=== PATIENT | male | born 1995 | race Caucasian/White ===

== ENCOUNTER 2016-07-02 21:11 | Emergency (ER) | payer SELFPAY ==
[2016-07-02 21:16] VITALS: BP 132/63; PULSE 99; RESP 18; TEMP 97.4
--- NOTE | 2016-07-02 21:49 | ED ---
General Adult HPI - General Chief complaint: Dental/Oral Stated complaint: Dental Pain Time Seen by Provider: 07/02/16 21:17 Source: patient, RN notes reviewed Mode of arrival: ambulatory Limitations: no limitations - History of Present Illness Initial comments: This is a 21-year-old male presents with left side dental pain 4 days. Patient states he has a fractured tooth and the pain is getting worse. Patient has not seen a dentist because he does not have one currently. Patient denies any fever/chills, nausea/vomiting/diarrhea. Patient states he's been taking Tylenol and Motrin with no pain relief. Patient denies any headache, dysphagia , sore throat or visual changes. Patient states is a smoker for the last 3 years a half pack a day. Patient denies any alcohol or drug use. Patient denies any recent shortness breath, chest pain, abdominal pain, back pain, numbness, tingling, hematuria or any other complaints. - Related Data Previous Rx's Medication Instructions Recorded HYDROcodone/APAP 5-325MG [[place] 1 tab PO Q6HR #7 tab 07/02/16 5-325] Penicillin V Potassium [Pen Vee K] 500 mg PO BID 7 Days 07/02/16 Allergies Allergy/AdvReac Type Severity Reaction Status Date / Time naproxen Allergy Unknown Verified 07/02/16 21:42 tramadol Allergy Unknown Verified 07/02/16 21:42 Review of Systems ROS Statement: Those systems with pertinent positive or pertinent negative responses have been documented in the HPI. ROS Other: All systems not noted in ROS Statement are negative. Past Medical History Past Medical History: No Reported History History of Any Multi-Drug Resistant Organisms: None Reported Past Surgical History: No Surgical Hx Reported Past Psychological History: Anxiety Smoking Status: Current every day smoker Past Alcohol Use History: None Reported Past Drug Use History: None Reported General Exam - General Exam Comments Initial Comments: General: The patient is awake and alert, in no distress, and does not appear acutely ill. Eye: Pupils are equal, round and reactive to light, extra-ocular movements are intact. No nystagmus. There is normal conjunctiva bilaterally. No signs of icterus. Ears: TMs pink and pearly with intact cone of light bilaterally. Normal external ear canals. Nose: Nasal turbinates pink and moist. Mouth and throat: There is a fractured tooth #14. There are multiple areas of tooth decay and multiple cavities. There is no surrounding erythema, swelling or purulent drainage. There is some tenderness to palpation over the left upper jaw but no external facial swelling. There are moist mucous membranes and no oral lesions. Neck: The neck is supple, there is no tenderness or JVD. Cardiovascular: There is a regular rate and rhythm. No murmur, rub or gallop is appreciated. Respiratory: Lungs are clear to auscultation, respirations are non-labored, breath sounds are equal. No wheezes, stridor, rales, or rhonchi. Musculoskeletal: Normal ROM, no tenderness. Strength 5/5. Sensation intact. Radial pulses equal bilaterally 2+. Neurological: A&O x 3. CN II-XII intact, There are no obvious motor or sensory deficits. Coordination appears grossly intact. Speech is normal. Skin: Skin is warm and dry and no rashes or lesions are noted. Psychiatric: Cooperative, appropriate mood & affect, normal judgment. Limitations: no limitations Course Vital Signs 07/02/16 21:13 Temperature 97.4 F L Pulse Rate 99 Respiratory 18 Rate Blood Pressure 132/63 O2 Sat by Pulse 100 Oximetry Medical Decision Making - Medical Decision Making This is a 21-year-old male who presents with left-sided dental pain 4 days. On physical exam There is a fractured tooth #14. There are multiple areas of tooth decay and multiple cavities. There is no surrounding erythema, swelling or purulent drainage. There is some tenderness to palpation over the left upper jaw but no external facial swelling. There are moist mucous membranes and no oral lesions. I discussed with patient that he is to follow up with a dentist as soon as possible. Discussed that he'll receive a prescription for an antibiotic and pain medication. Patient states he has taken [place] in the past and had no ALLERGIC reaction to this. I discussed [id number] Tylenol and Motrin as needed for pain as well. I discussed warm compresses to the area. Discussed return parameters.Discussed that patient should follow up with PCP in one to 2 days or return to the [facility] for any worsening symptoms or for any further concerns. Patient was receptive to this plan and patient will be discharged home. Disposition Clinical Impression: Pain, dental Disposition: HOME SELF-CARE Condition: Good Instructions: Toothache (ED) Additional Instructions: Please finish entire course of antibiotics. Please use pain medication as prescribed. Please follow-up with a dentist as soon as possible. [facility] dental plan: [id number] [place] [address], . [employer] [facility] [employer]: Have to pay $50 for x-rays and the rest is covered. [phone]. Please follow-up with family doctor in the next 2 days of symptoms have not improved. Please return to emergency room if the symptoms increase or worsen or for any other concerns. Prescriptions: HYDROcodone/APAP 5-325MG [[place] 5-325] 1 tab PO Q6HR #7 tab Penicillin V Potassium [Pen Vee K] 500 mg PO BID 7 Days Referrals: None,Stated [Primary Care Provider] - 1-2 days Time of Disposition: 21:55
== END 2016-07-02 22:00 | disposition home or self-care (01) ==
LOC: EC 21:11
DX: S02.5XXA Fracture of tooth (traumatic), initial encounter for closed fracture (principal); X58.XXXA Exposure to other specified factors, initial encounter; F17.200 Nicotine dependence, unspecified, uncomplicated; Z88.6 Allergy status to analgesic agent

== ENCOUNTER 2016-07-03 05:03 | Emergency (ER) | payer OTHER ==
[2016-07-03 05:15] VITALS: PULSE 84; RESP 18; TEMP 97
[2016-07-03] MEDS ORDERED: Acetaminophen-Codeine 300-30mg TAB PO STA (05:27)
--- NOTE | 2016-07-03 05:27 | ED ---
General Adult HPI - General Chief complaint: Dental/Oral Stated complaint: Neck Pain Time Seen by Provider: 07/03/16 05:11 Source: patient, RN notes reviewed, old records reviewed Mode of arrival: ambulatory Limitations: no limitations - History of Present Illness Initial comments: This is a 21-year-old male ER for evaluation. This patient is here for evaluation of tooth pain down K severe dental disease. Patient's history of renal disease, states he is in town from out of town visiting ami who is sick. Patient has no pain medication was seen in ER earlier today but pain and symptoms worsened. No fevers, able to swallow and open mouth without difficulty - Related Data Previous Rx's Medication Instructions Recorded HYDROcodone/APAP 5-325MG [[place] 1 tab PO Q6HR #7 tab 07/02/16 5-325] Penicillin V Potassium [Pen Vee K] 500 mg PO BID 7 Days 07/02/16 Acetaminophen with Codeine 1 tab PO Q4H PRN #20 tab 07/03/16 [Tylenol w/codeine #3] Allergies Allergy/AdvReac Type Severity Reaction Status Date / Time naproxen Allergy Unknown Verified 07/03/16 05:14 tramadol Allergy Unknown Verified 07/03/16 05:14 Review of Systems ROS Statement: Those systems with pertinent positive or pertinent negative responses have been documented in the HPI. ROS Other: All systems not noted in ROS Statement are negative. Past Medical History Past Medical History: No Reported History History of Any Multi-Drug Resistant Organisms: None Reported Past Surgical History: No Surgical Hx Reported Past Psychological History: Anxiety Smoking Status: Current every day smoker Past Alcohol Use History: None Reported Past Drug Use History: None Reported General Exam - General Exam Comments Initial Comments: No significant facial swelling noted no abscess noted Limitations: no limitations General appearance: alert, in no apparent distress Head exam: Present: atraumatic, normocephalic, normal inspection Eye exam: Present: normal appearance, PERRL, EOMI. Absent: scleral icterus, conjunctival injection, periorbital swelling ENT exam: Present: normal exam, mucous membranes moist Neck exam: Present: normal inspection. Absent: tenderness, meningismus, lymphadenopathy Respiratory exam: Present: normal lung sounds bilaterally. Absent: respiratory distress, wheezes, rales, rhonchi, stridor Cardiovascular Exam: Present: regular rate, normal rhythm, normal heart sounds. Absent: systolic murmur, diastolic murmur, rubs, gallop, clicks GI/Abdominal exam: Present: soft, normal bowel sounds. Absent: distended, tenderness, guarding, rebound, rigid Extremities exam: Present: normal inspection, full ROM, normal capillary refill. Absent: tenderness, pedal edema, joint swelling, calf tenderness Back exam: Present: normal inspection Neurological exam: Present: alert, oriented X3, CN II-XII intact Psychiatric exam: Present: normal affect, normal mood Skin exam: Present: warm, dry, intact, normal color. Absent: rash Course Vital Signs 07/03/16 05:08 Temperature 97 F L Pulse Rate 84 Respiratory 18 Rate Blood Pressure 150/84 O2 Sat by Pulse 97 Oximetry - Reevaluation(s) Reevaluation #1: 07/03/16 05:28 Patient consult regarding pain control and needs see dentist when infection clears Medical Decision Making - Medical Decision Making 21 male the ER for evaluation of dental pain, dental caries, dental abscess. Patient will continue treatment with antibiotics and discharged home Disposition Clinical Impression: Pain, dental, Dental caries, Dental abscess Disposition: HOME SELF-CARE Condition: Good Instructions: Dental Caries (ED), Toothache (ED), Dental Abscess (ED) Prescriptions: Acetaminophen with Codeine [Tylenol w/codeine #3] 1 tab PO Q4H PRN #20 tab PRN Reason: Pain Referrals: None,Stated [Primary Care Provider] - 1-2 days
[2016-07-03] MEDS ORDERED: PENICILLIN V POTASSIUM 250 MG TAB PO STA (05:29)
[2016-07-03] MEDS ORDERED: PENICILLIN VK 500MG STARTER 4 TAB BTL PO STA (05:29)
[2016-07-03 05:43] VITALS: BP 122/75
== END 2016-07-03 05:42 | disposition home or self-care (01) ==
LOC: EC 05:03
DX: K02.9 Dental caries, unspecified (principal); K04.7 Periapical abscess without sinus; Z88.8 Allergy status to other drugs, medicaments and biological substances; F17.200 Nicotine dependence, unspecified, uncomplicated
CPT/HCPCS: 99283

== ENCOUNTER 2016-07-03 06:00 | Inpatient (IN) | payer MEDICAID, OTHER ==
--- NOTE | 2016-07-03 07:10 | ED ---
General Adult HPI - General Source: patient, RN notes reviewed, old records reviewed Mode of arrival: ambulatory Limitations: no limitations <Didier Lawler - Last Filed: 07/03/16 07:09> <Jose Singh - Last Filed: 07/03/16 09:42> - General Chief complaint: Psychiatric Symptoms Stated complaint: Mental Health Time Seen by Provider: 07/03/16 07:09 - History of Present Illness Initial comments: This is a 21-year-old male ER for evaluation. Patient was a near with symptoms of suicidal thoughts. Patient states he feels feels like killing himself or Feeling like killing someone else. Patient states this anger and agitation continues to grow. (Didier Lawler) - Related Data Previous Rx's Medication Instructions Recorded HYDROcodone/APAP 5-325MG [[place] 1 tab PO Q6HR #7 tab 07/02/16 5-325] Penicillin V Potassium [Pen Vee K] 500 mg PO BID 7 Days 07/02/16 Allergies Allergy/AdvReac Type Severity Reaction Status Date / Time naproxen Allergy Unknown Verified 07/03/16 06:24 tramadol Allergy Unknown Verified 07/03/16 06:24 Review of Systems ROS Other: All systems not noted in ROS Statement are negative. <Didier Lawler - Last Filed: 07/03/16 07:09> ROS Other: All systems not noted in ROS Statement are negative. <Jose Singh - Last Filed: 07/03/16 09:42> ROS Statement: Those systems with pertinent positive or pertinent negative responses have been documented in the HPI. Past Medical History Past Medical History: No Reported History History of Any Multi-Drug Resistant Organisms: None Reported Past Surgical History: No Surgical Hx Reported Past Psychological History: Anxiety Smoking Status: Current every day smoker Past Alcohol Use History: None Reported Past Drug Use History: None Reported <Didier Lawler - Last Filed: 07/03/16 07:09> General Exam Limitations: no limitations General appearance: alert, in no apparent distress Head exam: Present: atraumatic, normocephalic, normal inspection Eye exam: Present: normal appearance, PERRL, EOMI. Absent: scleral icterus, conjunctival injection, periorbital swelling ENT exam: Present: normal exam, mucous membranes moist Neck exam: Present: normal inspection. Absent: tenderness, meningismus, lymphadenopathy Respiratory exam: Present: normal lung sounds bilaterally. Absent: respiratory distress, wheezes, rales, rhonchi, stridor Cardiovascular Exam: Present: regular rate, normal rhythm, normal heart sounds. Absent: systolic murmur, diastolic murmur, rubs, gallop, clicks GI/Abdominal exam: Present: soft, normal bowel sounds. Absent: distended, tenderness, guarding, rebound, rigid Extremities exam: Present: normal inspection, full ROM, normal capillary refill. Absent: tenderness, pedal edema, joint swelling, calf tenderness Back exam: Present: normal inspection Neurological exam: Present: alert, oriented X3, CN II-XII intact Psychiatric exam: Present: normal affect, normal mood Skin exam: Present: warm, dry, intact, normal color. Absent: rash <Didier Lawler - Last Filed: 07/03/16 07:09> Course <Didier Lawler - Last Filed: 07/03/16 07:09> <Jose Singh - Last Filed: 07/03/16 09:42> Vital Signs 07/03/16 07/03/16 06:18 07:45 Temperature 97.0 F L Pulse Rate 96 84 Respiratory 16 18 Rate Blood Pressure 124/81 92/49 O2 Sat by Pulse 100 100 Oximetry Based on a suicidal ideation as well as homicidal ideation a sort was done twice inpatient treatment and further eval in the department of psychiatry at 9: 14 AM today him a discussed with social services analyst from Department of psychiatry and arrangements are being made for his inpatient treatment (Jose Singh) - Reevaluation(s) Reevaluation #1: 07/03/16 07:10 Patient was seen by myself in the emergency room earlier today for dental pain and also again 12 hours prior to that, patient was told to begin pain medication. He did leave the emergency room and then return complaining of suicidal thoughts (Didier Lawler) Reevaluation #2: 07/03/16 07:10 Patient's medically clear for psychiatric evaluation (Didier Lawler) Disposition <Didier Lawler - Last Filed: 07/03/16 07:09> <Jose Singh - Last Filed: 07/03/16 09:42> Clinical Impression: Suicidal ideation, Homicidal ideation Disposition: ADMITTED IP TO THIS [facility] Condition: Good Referrals: None,Stated [Primary Care Provider] - 1-2 days
[2016-07-03] MEDS ORDERED: HALOPERIDOL LACTATE 5 MG/ML 1 ML VIAL IM PRN (09:10)
[2016-07-03] MEDS ORDERED: LORazepam 2 MG/ML SYRINGE IM STA (09:49)
[2016-07-03] MEDS ORDERED: MAGNESIUM HYDROXIDE 2,400 MG/10 ML CUP PO PRN (10:59)
[2016-07-03] MEDS ORDERED: ACETAMINOPHEN TAB 325 MG TAB PO PRN (10:59)
[2016-07-03] MEDS ORDERED: ZIPRASIDONE 20 MG VIAL IM PRN (10:59)
[2016-07-03] MEDS ORDERED: MAG HYDROX/AL HYDROX/SIMETH 30 ML CUP PO PRN (10:59)
[2016-07-03 20:15] VITALS: BMI 24.0
[2016-07-04 06:35] VITALS: BP 118/67; PULSE 75; RESP 16; TEMP 97.9
[2016-07-04 09:35] LABS: Basophils # (A) 0.1 k/uL (0-0.2); Basophils % (A) 1 %; CH 31.1; CHCM 34.1; Eosinophils # (A) 0.5 k/uL (0-0.7); Eosinophils % (A) 6 %; HCT 46.9 % (39.0-53.0); HDW 2.55; HGB 15.4 gm/dL (13.0-17.5); Luc # (Auto) 0.11; Luc % (Auto) 1; Lymphocytes # (A) 1.7 k/uL (1.0-4.8); Lymphocytes % (A) 20 %; MCHC 32.8 g/dL (31.0-37.0); MCV 91.7 fL (80.0-100.0); Mean Platelet Volume 7.1; Monocytes # (A) 0.4 k/uL (0-1.0); Monocytes % (A) 4 %; Neutrophils # (A) 5.9 k/uL (1.3-7.7); Neutrophils % (A) 68 %; RBC 5.12 m/uL (4.30-5.90); RDW 12.1 % (11.5-15.5); WBC 8.7 k/uL (4.0-11.0); WBC (Perox) 8.69
--- NOTE | 2016-07-04 09:55 | P.HP ---
Psychiatric H&P - . History & Physical: Allergies Allergy/AdvReac Type Severity Reaction Status Date / Time naproxen Allergy Unknown Verified 07/03/16 20:17 tramadol Allergy Unknown Verified 07/03/16 20:17 Vital Signs Temp 97.9 F 07/04/16 06:34 Pulse 75 07/04/16 06:34 Resp 16 07/04/16 06:34 BP 118/67 07/04/16 06:34 Pulse Ox 98 07/03/16 10:30 Intake & Output 07/03/16 07/04/16 07/04/16 18:59 06:59 18:59 Weight 71.781 kg 71.78 kg Laboratory Last Values Urine Opiates Screen Not Detected (NotDetected) 07/03/16 06:54 Ur Oxycodone Screen Not Detected (NotDetected) 07/03/16 06:54 Urine Methadone Screen Not Detected (NotDetected) 07/03/16 06:54 Ur Propoxyphene Screen Not Detected (NotDetected) 07/03/16 06:54 Ur Barbiturates Screen Not Detected (NotDetected) 07/03/16 06:54 U Tricyclic Antidepress Not Detected (NotDetected) 07/03/16 06:54 Ur Phencyclidine Scrn Not Detected (NotDetected) 07/03/16 06:54 Ur Amphetamines Screen Not Detected (NotDetected) 07/03/16 06:54 U Methamphetamines Scrn Not Detected (NotDetected) 07/03/16 06:54 U Benzodiazepines Scrn Detected (NotDetected) H 07/03/16 06:54 Urine Cocaine Screen Not Detected (NotDetected) 07/03/16 06:54 U Marijuana (THC) Screen Detected (NotDetected) H 07/03/16 06:54 07/04/16 09:25 Psychiatric admission notes. Identification data and reason for hospitalization. Patient is a 21-year-old male who was admitted to mental health unit following evaluation in the emergency department on a petition made by the social welfare research worker and clinical certificate by the physician. The petition states that patient had reported having suicidal thoughts and also seemed to have made threats to the social welfare research worker as well as other staff members in the ER. I attempted to see the patient on 07/03/2016, but he was under heavy sedation having had a injection of Haldol and Ativan in the emergency room, with the result he was not arousable. History of present illness. Information obtainable from the patient may not be fully reliable as far as his personal history, however he indicates that he had no past psychiatric problem nor having any depression or suicidal thoughts at the time of admission either. According to him he has been in the [facility] for the past 3 weeks living with his grandfather who is in an assisted living facility. For the past few days he had been having severe toothache and could not afford to go to a dentist and hence came to the emergency room on 3 occasions seeking pain medication. There is likelihood that he may be abusing or dependent on opiates though he denies this. According to him as there was no improvement he came back on the day of this admission and during the evaluation made a statement that the pain is so severe he wished he was . Patient emphasizes that it was not his statement that he was having suicidal thoughts or he wanted to harm himself. Patient upset that this was interpreted as a suicidal statement and during the discussion he also seemed to set that he has problem with anger and deep somebody could agitate him he could hurt them. Denies that he meant that he was having thoughts of hurting others. As noted patient was admitted on a petition and clinical certificate and today following my evaluation patient willing to be on a voluntary status. He is requesting to be discharged as he is not suicidal or has any psychiatric problem. Past psychiatric history. Patient denies having any psychiatric problem currently or in the past and on direct inquiry denies having had any behavioral issues while at school or subsequently. Substance abuse history. Patient denies having had any alcohol use or abuse. Admits that he smokes marijuana once in a while but no other street drugs. Medical history. Complains of toothache from a broken tooth. No other past medical history. Personal history. Patient is older of 2 siblings; has an 18-year-old sister who is in high school. Reports that his father when he was 4 years old of cancer. When he was 14 his mother left and he claims that he has no knowledge about her whereabouts. He and his sister was raised by stepmother who according to him is dying of cancer. Father states that he was an honor student and has graduated from high school. Wanted to go to college but financially he could not and assumes the responsibility of taking care of his sister. There may be some discrepancies in his personal history. To verify them through psychosocial history. Family history. Per patient no family history of any psychiatric problem. ALLERGIES Naprosyn and tramadol. Current medications. Patient was prescribed penicillin 500 mg for 7 days, and no cough 5/325 every 6 hours when necessary both prescribed down 07/02/2016. Mental status examination. Patient is a small built white gentleman who comes readily for evaluation, dressed in his own clothes and maintaining good eye contact. His attention and concentration could be aroused and sustained without difficulty. Patient initiated conversation indicating how anxious he is to get back to [place] where he is from as he claims his stepfather is in the hospital and may not make it. Patient appeared to be superficially cooperative however became irritated with the process of his admission claiming that he was not suicidal or homicidal and did not indicate either. Speech and thought process appeared to be normal. Denies any depression, however admits that he was unaware of anger problems. Other than being irritable no mood disturbance noticeable. Affect appropriate. No evidence of any delusions or hallucinations. Oriented to time place and person. Memory functions off remote and recent events may be intact though these are not verifiable at present. Immediate recall intact. General Information intact. May have adequate degree of insight though his judgment of utilizing ER consecutively may indicate questionable judgment. Intelligence. Above average Strengths. High school graduate, according to him honor student. Absence of past psychiatric or substance abuse history other than marijuana. Weakness. Unemployed. Questionable limitation of family support. Formulation. Patient is a 21-year-old white gentleman, with no prior history of psychiatric or substance abuse problem, came to the ER reporting toothache and wanting medication. During evaluation having made statement of questionable suicidality and homicidality and was referred for inpatient care on a petition and clinical certificate. Patient denies both and is requesting to be discharged. Admitting diagnoses. [place] I. Marijuana use. Rule out adjustment disorder. [place] II. Deferred [place] III. Toothache. [place] IV. Mild. [place] V. 60. Treatment plans. Patient will be on regular diet and will be on close observation for any behavioral issues. Medical evaluation and psychosocial history to be obtained. Patient does not want to be on any psychotropic medication as he denies having any psychiatric problems, and unless there is indication otherwise no medication prescribed. He may have Tylenol, Maalox and Mylanta on a when necessary basis. We will try to get as much information as possible and will consider discharge without treatment. Prognosis.
[2016-07-04 10:07] LABS: ALT 32 U/L (21-72); AST 26 U/L (17-59); Alkaline Phosphatase 89 U/L (38-126); Anion Gap 13 mmol/L; Blood Urea Nitrogen 16 mg/dL (9-20); Calcium 10.1 mg/dL (8.4-10.2); Carbon Dioxide 28 mmol/L (22-30); Chloride 105 mmol/L (98-107); Glucose 112 mg/dL (74-99); Non-African American GFR(MDRD) >60 (>60 ml/min/1.73 sqM); Potassium 4.2 mmol/L (3.5-5.1); Sodium 146 mmol/L (137-145); Total Bilirubin 1.6 mg/dL (0.2-1.3); Total Protein 7.3 g/dL (6.3-8.2)
--- NOTE | 2016-07-04 13:41 | P.DS ---
Providers Date of admission: 07/03/16 10:28 Attending physician: Elodia Pardo MD Psychiatric discharge summary. Identification data and reason for hospitalization. Patient is a 21-year-old white gentleman was admitted to mental health unit following evaluation in the emergency department on a petition made by social media marketing specialist and clinical certificate by physician. Apparently patient came to the hospital seeking pain medication on 3 days consecutively and while there seems to have expressed suicidal and homicidal thoughts. Following evaluation by me patient signed voluntary and he did not meet criteria for continued hospitalization as there was no evidence of him being depressed or having suicidal/homicidal thoughts. For details please refer to the dictated admission notes. Admitting diagnoses. [place] I. Marijuana abuse. Rule out adjustment disorder. [place] II. Deferred [place] III. Tooth ache. [place] IV. Mild. [place] V. 60. Course during hospitalization. Patient was on regular diet and on a when necessary basis was on Tylenol Maalox and Mylanta. As patient did not manifest depression or suicidal ideation discharge plans were made at his request as he indicated that he has obtained a job and need to return to work as soon as possible. The only problem this gentleman seems to have at present is his marijuana dependency and possibly becoming dependent on pain medication. Patient was agreeable to go for counseling and discharged with that recommendation. While on the unit he was continued on penicillin and [place] as prescribed in the ER. Mental status at the time of discharge. No change from the time of admission. Discharge diagnoses. No change from the admitting diagnoses. Post hospital plans. Patient to be on regular diet and may resume insulin and [place] as advised in the ER. He has an appointment at [facility] for impact on . Next Risk assessment. Based on my evaluation there does not appear to be a risk of him being dangerous to self or others. However it is not clear the extent of his substance abuse problem and this may be a future problem for this gentleman. Consults: 07/03/16 10:59 Consult Physician Routine Consulting Provider: Jeramy Sorto Consult Reason/Comments: H and P Do you want consulting provider notified?: Yes Primary care physician: Stated None Patient Condition at Discharge: Good Plan - Discharge Summary Discharge Medication List HYDROcodone/APAP 5-325MG [[place] 5-325] 1 tab PO Q6HR #7 tab 07/02/16 [Rx] Penicillin V Potassium [Pen Vee K] 500 mg PO BID 7 Days 07/02/16 [Rx] Follow up Appointment(s)/Referral(s): [facility] for [facility] [Outside] - 07/09/16 12:00 pm (07/09/16 at 1200 with intake ) None,Stated [Primary Care Provider] - 1-2 days Patient Instructions/Handouts: Depression (DC), Suicide Prevention for Adults ( DC) Activity/Diet/Wound Care/Special Instructions: activity and diet as tolerated. Avoid the use of street drugs and alcohol. Please go to scheduled outpatient appointment for aftercare. If symptoms return or become worse call the crisis line at and/or go to the nearest emergency room for an evaluation.
--- NOTE | 2016-07-05 15:48 | CONS ---
DATE OF CONSULTATION: 07/04/2016 DATE OF SERVICE: 07/04/2016 at 12:00 noon. CHIEF COMPLAINT: Depression. HISTORY OF PRESENT ILLNESS: This 21-year-old with no significant past medical history who presented to the emergency department with depression. Currently patient is denying chest pain, shortness of breath, nausea, vomiting, orthopnea, dizziness, lightheadedness, or blurry vision and would like to go home as soon as possible. ALLERGIES: 1. TRAMADOL gives him headache. 2. NAPROXEN gives him vomiting. PAST MEDICAL HISTORY: None. PAST SURGICAL HISTORY: Positive for right first digit surgery. HOME MEDICATIONS: Hydrocodone for his tooth fracture pain as needed. SOCIAL HISTORY: Positive for half pack per day cigarette smoking. Positive for occasional marijuana. FAMILY HISTORY: Significant for father with colon cancer and 17-years ago. Other family members are healthy. PHYSICAL EXAMINATION: VITAL SIGNS: Stable. GENERAL: Patient not in acute distress. HEENT: Atraumatic, normocephalic. NECK: Supple. No masses, no thyromegaly. LUNGS: Clear to auscultation bilaterally. HEART: S1, S2. ABDOMEN: Soft, no tenderness. Bowel sounds in all four quadrants. EXTREMITIES: No edema. PSYCH: Alert and oriented x3. ( ) effect. IMAGING AND LABS: Reviewed. ASSESSMENT AND PLAN: 1. Acute depression per your management. 2. Tooth fracture. Pain medicine with outpatient primary care physician. Patient follow up with them as an outpatient. No obvious infection at this point. No need for any antibiotics. 3. Discharge planning per primary team recommendations.
== END 2016-07-04 13:20 | disposition home or self-care (01) | DRG 882 ==
LOC: EC 06:00 → 3MHU 10:28
PROVIDERS: ADMIT Psychiatry & Neurology Psychiatry; ATTEND Psychiatry & Neurology Psychiatry
DX: F43.20 Adjustment disorder, unspecified (principal); R45.851 Suicidal ideations; R45.850 Homicidal ideations; F41.9 Anxiety disorder, unspecified; F12.10 Cannabis abuse, uncomplicated; F32.9 Major depressive disorder, single episode, unspecified; K03.81 Cracked tooth; K08.89 Other specified disorders of teeth and supporting structures; F17.210 Nicotine dependence, cigarettes, uncomplicated; Z80.0 Family history of malignant neoplasm of digestive organs; Z71.6 Tobacco abuse counseling; Z63.8 Other specified problems related to primary support group; Z76.5 Malingerer [conscious simulation]; Z56.0 Unemployment, unspecified; Z88.5 Allergy status to narcotic agent; Z88.6 Allergy status to analgesic agent; Z71.51 Drug abuse counseling and surveillance of drug abuser; Z71.89 Other specified counseling
CPT/HCPCS: 80053; 80306; 82075; 84443; 85025; 96372; 99285